=== PATIENT | male | born 1980 | race Two or more races ===

== ENCOUNTER 2022-02-24 00:14 | Emergency (ER) | payer SELFPAY ==
[~2022-02-24] VITALS: Ht 177.8 cm; Wt 80.0 kg
[2022-02-24] MEDS ORDERED: MORPHINE SULFATE 4 MG/ML SYR/VIAL IM ONE (01:30)
[2022-02-24] MEDS ORDERED: HYDR-4798 PO (05:50)
[2022-02-24] MEDS ORDERED: CEPH-510 PO (05:50)
[2022-02-24 06:36] VITALS: BP 127/75
== END 2022-02-24 05:51 | disposition home or self-care (01) ==
LOC: ER 00:14 → EDBD 00:14 → ER 05:51
DX: S52.001A Unspecified fracture of upper end of right ulna, initial encounter for closed fracture (principal); S52.201A Unspecified fracture of shaft of right ulna, initial encounter for closed fracture; S01.01XA Laceration without foreign body of scalp, initial encounter; Y04.8XXA Assault by other bodily force, initial encounter; Y93.89 Activity, other specified; Y92.89 Other specified places as the place of occurrence of the external cause; Y99.8 Other external cause status
CPT/HCPCS: 12004; 29125; 70450; 70486; 72125; 73090; 73130; 96372; 99284; J2270